=== PATIENT | female | born 1950 | race Caucasian/White ===

== ENCOUNTER 2019-04-17 11:06 | Outpatient (CLI) | payer MEDICARE, BC ==
--- NOTE | 2019-04-17 11:54 | RAD ---
BILATERAL HIPS 2 VIEWS EACH AND AP PELVIS 1 VIEW: HISTORY: Left and right hip pain, left total hip replacement. COMPARISON: 11/18/2016. FINDINGS: Left total hip replacement. No dislocation or periprosthetic fracture. RIGHT HIP 2 VIEWS: Severe right hip joint osteoarthrosis with marked narrowing of the hip joint space showing considerab le worsening when compared to the prior study. IMPRESSION: 1. Stable left total hip replacement. 2. Marked worsening of the right hip joint arthrosis with severe joint space loss and considerable s clerosis and eburnation. POS: [facility]
== END 2019-04-17 11:07 | disposition home or self-care (01) ==
LOC: BICRAD 11:06
DX: M25.551 Pain in right hip (principal); M16.11 Unilateral primary osteoarthritis, right hip; Z96.642 Presence of left artificial hip joint
CPT/HCPCS: 73523

== ENCOUNTER 2019-05-12 06:36 | Emergency (ER) | payer MEDICARE, BC ==
--- NOTE | 2019-05-12 08:13 | ULT ---
DOPPLER VENOUS ULTRASOUND OF THE RIGHT LOWER EXTREMITY: INDICATION: History of right lower extremity swelling and pain following hip replacement. TECHNIQUE: Pratt scale, color Doppler, and vascular duplex with spectral analysis was performed of the deep venou s structures of both lower extremities. The common femoral vein, superficial femoral vein, popliteal vein, posterior tibial vein, proximal greater saphenous, and proximal profunda veins were assessed bi laterally. FINDINGS: There is normal compression, flow, and augmentation seen within the deep venous structures of right l ower extremity. IMPRESSION: No evidence of deep vein thrombosis within the right lower extremity. POS: [facility]
--- NOTE | 2019-05-12 08:20 | RAD ---
EXAM: XR Femur Rt 2 View STANDARD PROVIDED CLINICAL HISTORY: Pain FINDINGS: There is no evidence for fracture or other acute osseous abnormality. Alignment appears anatomic. Rig ht hip arthroplasty changes are demonstrated without evidence for hardware complication. IMPRESSION: No evidence for an acute osseous abnormality. If there is persistent clinical concern, conservative m anagement and follow-up imaging advised.
--- NOTE | 2019-05-12 08:26 | RAD ---
AP VIEW OF THE PELVIS: INDICATION: Right hip pain. COMPARISON: None. FINDINGS: There are bilateral total hip prostheses. Visualized aspects of the prostheses appear within normal limits. There is mild degenerative change of both SI joints and symphysis pubis. No displaced pelvi c fracture is evident. There is a prominent of retained stool within the colon. IMPRESSION: No acute osseous abnormality. POS: [facility]
--- NOTE | 2019-05-12 08:27 | RAD ---
RIGHT HP 2 VIEWS: INDICATION: History of right hip pain. COMPARISON: Prior exam dated 03/06/2015 and 04/17/2019. FINDINGS: Since the comparison examination there has been interval performance of a right total hip prosthesis. No acute fracture or subluxation is evident. IMPRESSION: Right total hip prosthesis without acute osseous abnormality. POS: [facility]
== END 2019-05-12 09:32 | disposition home or self-care (01) ==
LOC: ERS 06:36
DX: M25.551 Pain in right hip (principal); I10 Essential (primary) hypertension; Z79.01 Long term (current) use of anticoagulants; Z79.899 Other long term (current) drug therapy
CPT/HCPCS: 72170

== ENCOUNTER 2019-05-23 09:08 | Outpatient (CLI) | payer MEDICARE, BC ==
--- NOTE | 2019-05-23 09:56 | ULT ---
EXAM: Bilateral lower extremity venous ultrasound HISTORY: Bilateral lower extremity pain COMPARISON: None TECHNIQUE: Multiplanar grayscale and color Doppler images were obtained in a bilateral lower extremit y venous ultrasound. Spectral analysis of the Doppler waveforms were performed. FINDINGS: The bilateral common femoral vein, profunda femoral veins, superficial femoral veins, and p opliteal veins are normal in appearance without visible thrombus. These vessels demonstrate normal compression, flow, and augmentation. The bilateral posterior tibial veins, profunda femoral veins and greater saphenous veins are patent w ithout evidence of DVT. Incidental findings: Enlarged bilateral inguinal lymph node with preserved fatty hilum. Right inguina l lymph node measures 2.2 cm in maximum dimension. Left inguinal lymph node measures 1.3 cm in maximum dimension. IMPRESSION: No evidence of DVT in the left or right lower extremity.
== END 2019-05-23 09:09 | disposition home or self-care (01) ==
LOC: SCSULT 09:08
PROVIDERS: ATTEND Internal Medicine
DX: M79.89 Other specified soft tissue disorders (principal); R60.0 Localized edema
CPT/HCPCS: 93970

== ENCOUNTER 2019-06-13 09:08 | Outpatient (CLI) | payer MEDICARE, BC ==
--- NOTE | 2019-06-13 10:02 | RAD ---
Exam:Right hip 2 views HISTORY: Status post right hip surgery. COMPARISON: 05/12/2019 FINDINGS: Stable postoperative changes, compatible with right hip arthroplasty. Near anatomic alignme nt. IMPRESSION: Findings compatible with right hip arthroplasty. No significant change.
== END 2019-06-13 09:09 | disposition home or self-care (01) ==
LOC: SCSRAD 09:08
DX: Z47.1 Aftercare following joint replacement surgery (principal); Z96.641 Presence of right artificial hip joint

== ENCOUNTER 2020-04-02 10:51 | Outpatient (CLI) | payer MEDICARE, BC ==
--- NOTE | 2020-04-02 15:16 | MMO ---
Bilateral MAMMO Bilat Screen [facility]. CLINICAL HISTORY: Patient is 69 years old and is seen for screening. The patient has the following family history of breast cancer: mother, at age 65 and sister, at age 50. The patient has no personal history of cancer. VIEWS: The views performed were: bilateral craniocaudal with tomosynthesis and bilateral mediolateral oblique with tomosynthesis. FILMS COMPARED: The present examination has been compared to prior imaging studies performed at [facility] on 01/04/2019, and at [facility] on 12/17/2016 and 12/27/2017. This study has been interpreted with the assistance of computer-aided detection. MAMMOGRAM FINDINGS: The breasts are heterogeneously dense, which could obscure a lesion on mammography. There are stable vascular calcifications seen in both breasts. There are no suspicious masses, suspicious calcifications, or new areas of architectural distortion. IMPRESSION: THERE IS NO MAMMOGRAPHIC EVIDENCE OF MALIGNANCY. A ROUTINE FOLLOW-UP MAMMOGRAM IN 1 YEAR IS RECOMMENDED. THE RESULTS OF THIS EXAM WERE SENT TO THE PATIENT. ACR BI-RADS Category 2 - Benign finding MAMMOGRAPHY NOTE: 1. A negative mammogram report should not delay a biopsy if a dominant of clinically suspicious mass is present. 2. Approximately 10% to 15% of breast cancers are not detected by mammography. 3. Adenosis and dense breasts may obscure an underlying neoplasm. Reported by: RENETTA BOONE MD Electonically Signed: [id number]
--- NOTE | 2020-04-03 07:05 | RAD ---
Exam: Lumbar spine 3 views HISTORY: Low back pain. Fall. Comparison: 11/22/2006 05/04/2012 Correlation: Lumbar spine MRI 03/27/2019 FINDINGS: Extensive fusion changes involving the distal thoracic and upper lumbar spine. There is a m etallic cage at the T11-T12 level. No evidence of perihardware lucency. No acute fractures. IMPRESSION: Uncomplicated postsurgical changes. No acute fracture.
== END 2020-04-02 10:52 | disposition home or self-care (01) ==
LOC: BICRAD 10:51
PROVIDERS: ATTEND Internal Medicine
DX: Z12.31 Encounter for screening mammogram for malignant neoplasm of breast (principal); M48.062 Spinal stenosis, lumbar region with neurogenic claudication; W18.30XA Fall on same level, unspecified, initial encounter; Z80.3 Family history of malignant neoplasm of breast; Z98.890 Other specified postprocedural states
CPT/HCPCS: 72100; 77063; 77067

== ENCOUNTER 2021-04-03 09:09 | Outpatient (CLI) | payer MEDICARE, BC | END 2021-04-03 09:10 | disposition home or self-care (01) | LOC: BICMAMMO 09:09 | PROVIDERS: ATTEND Internal Medicine | DX: Z12.31 Encounter for screening mammogram for malignant neoplasm of breast (principal); Z80.3 Family history of malignant neoplasm of breast | CPT/HCPCS: 77063; 77067 ==

== ENCOUNTER 2022-01-14 11:17 | Outpatient (CLI) | payer MEDICARE, BC ==
[2022-01-14 12:47] LABS: PTT 25.8 sec (22.0-33.0); Prothrombin Time 10.4 sec (9.5-12.1)
[2022-01-14 12:52] LABS: Anion Gap 11 mmol/L (10-20); BUN (Urea Nitrogen) 15 mg/dL (9.8-20.1); Calc. Creatinine Clearance 0 mL/min (70-130); Calcium 9.6 mg/dL (7.8-10.44); Carbon Dioxide 29 mmol/L (23-31); Chloride 103 mmol/L (98-107); Estimated GFR 89; Glucose 89 mg/dL (80-115); Potassium 4.3 mmol/L (3.5-5.1); Sodium 139 mmol/L (136-145)
[2022-01-14 13:12] LABS: Hemoglobin 12.3 g/dL (12.0-15.5); Mean Corpuscular Hemoglobin 33.9 pg (27.0-33.0); Mean Corpuscular Volume 102.8 fl (81.6-98.3); Mean Platelet Volume 10.1 fl (7.4-10.4); Platelet Count 200 10x3/uL (150-450); RBC Distribution Width 12.4 % (11.5-14.5); Red Blood Cell (RBC) Count 3.63 10x6/uL (3.90-5.03)
== END 2022-01-14 11:18 | disposition home or self-care (01) ==
LOC: LABBT 11:17
PROVIDERS: ATTEND Urology
DX: Z01.812 Encounter for preprocedural laboratory examination (principal); R31.21 Asymptomatic microscopic hematuria
CPT/HCPCS: 80048; 85027; 85610; 85730; 87086; 93005; 93010

== ENCOUNTER 2022-01-19 06:00 | Day surgery (SDC) | payer MEDICARE, BC ==
[2022-01-16 12:47] VITALS: BMI 18.1
[2022-01-19] MEDS ORDERED: Iopamidol 30 ML ONE (07:10)
[2022-01-19] MEDS ORDERED: Ketamine 50 MG/ML (10ML VIAL) ONE (07:17)
[2022-01-19] MEDS ORDERED: fentaNYL PF 100 MCG/2 ML SYRINGE ONE (07:17)
[2022-01-19] MEDS ORDERED: Vancomycin 1 GM/200 ML (FROZEN) BAG ONE (07:18)
[2022-01-19] MEDS ORDERED: Midazolam HCl 2 mg/2 ml Vial ONE (07:22)
[2022-01-19] MEDS ORDERED: PROPOFOL 200 MG/20 ML VIAL ONE (07:35)
[2022-01-19] MEDS ORDERED: Ondansetron PF 4 MG/2 ML Vial ONE (07:35)
== END 2022-01-19 09:15 | disposition home or self-care (01) ==
LOC: SDC 06:00
PROVIDERS: ATTEND Urology
PROC: BT14ZZZ Fluoroscopy of Kidneys, Ureters and Bladder (ICD-10-PCS; principal; 2022-01-19)
DX: N13.30 Unspecified hydronephrosis (principal); R31.29 Other microscopic hematuria; I10 Essential (primary) hypertension; G89.29 Other chronic pain; M54.9 Dorsalgia, unspecified; Z79.899 Other long term (current) drug therapy; Z88.0 Allergy status to penicillin; Z88.8 Allergy status to other drugs, medicaments and biological substances
CPT/HCPCS: 52005; 74420; J3370; J1956; J2250; J2405; J2704; Q9967

== ENCOUNTER 2025-01-24 13:36 | Outpatient (CLI) | payer MEDICARE | END 2025-01-24 13:37 | disposition home or self-care (01) | LOC: SCSRAD 13:36 | PROVIDERS: ATTEND Nurse Practitioner Family | DX: M79.671 Pain in right foot (principal) ==